=== PATIENT | female | born 1950 | race Caucasian/White ===

== ENCOUNTER 2019-02-11 07:35 | Day surgery (SDC) | payer MEDICARE, BC, OTHER ==
[~2019-02-11] VITALS: Ht 154.9 cm; Wt 79.5 kg
[~2019-02-11 07:35] MED LIST: BUMINATE50 ML IV; CEREFOLIN PO; CEREFOLIN TAB1 TAB PO; COUMADIN5 MG PO; FLAGYL IV; FLAGYL500 MG PO; HUMULIN R100 U/ML SC; HYDROCODON-ACE1 EAC7 PO; IMODIUM2 MG PO; INTRALIPID 20%250 ML IV; LOVENOX30 MG/0.3 SC; LUNESTA1 MG PO; PHENERGAN25 M1 PO; PRADAXA150 MG PO; PROTONIX I40 MG/VIAL IV; QUESTRAN LIG1 PACKET PO; SALINE FLUSH10 ML IV; SODIUM CL 0.91000 ML IV; TOPROL XL100 MG PO; ULTRAM50 MG PO; VANCOMYCIN250 MG/51 PO; ZOFRAN IV; [UNRECOGNIZED DRUG - CODE]
[2019-02-11 07:38] VITALS: BP 133/75; Ht 154.9 cm; Wt 79.5 kg
[2019-02-11] MEDS ORDERED: LIPITOR20 MG PO (07:42)
[2019-02-11] MEDS ORDERED: REMERON15 MG PO (07:42)
[2019-02-11] MEDS ORDERED: K-TAB10 MEQ PO (07:42)
--- NOTE | 2019-02-11 12:05 | NUR ---
PT TO GI LAB FOR EGD AT THIS TIME VIA STRETCHER IN STABLE CONDITION
[2019-02-11 12:34] LABS: BASOPHILS 0.4 % (0-2); EOSINOPHILS 2.7 % (0-7); HEMATOCRIT 38.8 % (36.0-48.0); HEMOGLOBIN 12.9 g/dL (12-16); IMMATURE GRANULOCYTES 0.1 % (0-5); LYMPHOCYTES 24.9 % (15-50); MCH 30.9 pg (26.0-34.0); MCHC 33.2 g/dL (31.0-37.0); MEAN PLATELET VOLUME 9.6 fL (7.4-10.4); MONOCYTES 6.8 % (2-11); NEUTROPHILS 65.1 % (40-80); PLATELET COUNT 187 10x3/uL (130-400); RBC 4.17 10x6/uL (4.00-5.40); RDW 13.4 % (11.5-14.5); WBC 9.7 10x3/uL (4.8-10.8)
[2019-02-11 12:50] LABS: ALBUMIN 3.7 g/dL (3.4-5.0); ANION GAP 13.1 mmol/L (8-16); BILIRUBIN - TOTAL 0.52 mg/dL (0.2-1.3); CALCIUM 8.8 mg/dL (8.5-10.1); CARBON DIOXIDE 26.4 mmol/L (21.0-32.0); POTASSIUM - SERUM 4.5 mmol/L (3.5-5.1); PROTEIN - SERUM 8.2 g/dL (6.4-8.2)
--- NOTE | 2019-02-11 13:55 | NUR ---
PATIENT OK FOR SHORT STAY PER ANESTHESIA
--- NOTE | 2019-02-11 15:25 | NUR ---
IV REMOVED AND INSTRUCTIONS GIVEN AND RX GIVEN TO FILL.
== END 2019-02-11 15:30 | disposition home or self-care (01) ==
LOC: OBSVTIME → D.OPS 07:35 → D.ER 07:35 → D.EDHOLD 13:20 → D.ER 13:20 → D.EDHOLD 13:20 → OBSVTIME 14:11 → D.OPS 15:30 → EDSTATUS 15:47
PROVIDERS: Anesthesiology; ATTEND Internal Medicine Gastroenterology
DX: T18.128A Food in esophagus causing other injury, initial encounter (principal); K22.2 Esophageal obstruction; Z01.812 Encounter for preprocedural laboratory examination

== ENCOUNTER 2020-05-25 08:00 | Outpatient (CLI) | payer MEDICARE, BC, OTHER ==
[2019-02-11 07:38] VITALS: BMI 33.1
[~2020-05-25 08:00] MED LIST changes: +K-TAB10 MEQ PO; +LIPITOR20 MG PO; +REMERON15 MG PO
== END 2020-05-25 14:35 | disposition home or self-care (01) ==
LOC: D.MAMMO 08:00
PROVIDERS: ATTEND Family Medicine
DX: Z12.31 Encounter for screening mammogram for malignant neoplasm of breast (principal)

== ENCOUNTER → 2021-04-26 11:25 | Outpatient (CLI) | payer MEDICARE, BC, OTHER ==
[~2021-04-26] VITALS: Ht 152.4 cm; Wt 85.9 kg
[2021-04-26 11:44] VITALS: BP 131/61; Ht 152.4 cm; Wt 85.9 kg
--- NOTE | 2021-04-26 11:58 | NUR ---
PT AMBULATED IN FOR PROLIA INJECTION, STATES HAS HAD PREVIOUS INJECTION AT THIS FACILITY WITHOUT ANY PROBLEMS. INJECTION GIVEN IN LEFT UPPER ARM. PT AMBULATED OUT WITHOUT ANY PROBLEMS NOTED
== END | disposition home or self-care (01) ==
LOC: D.OPS 11:25
PROVIDERS: ATTEND Family Medicine
DX: M81.0 Age-related osteoporosis without current pathological fracture (principal)